=== PATIENT | female | born 1950 | race American Indian/Alaskan Native ===

== ENCOUNTER 2017-09-09 20:04 | Emergency (ER) | payer SELFPAY ==
[2017-09-09 20:37] VITALS: BP 156/70
[2017-09-09 21:05] LABS: Basophils % (Auto) 0.4 % (0.0-1.8); Eosinophils % (Auto) 0.4 % (0.0-4.3); Hematocrit 38.3 % (30.3-42.9); Hemoglobin 12.7 gm/dl (10.1-14.3); Lymphocytes # (Auto) 1.3 K/mm3 (1.2-5.4); Lymphocytes % (Auto) 15.9 % (13.4-35.0); Mean Corpuscular HGB Conc 33 % (30-34); Mean Corpuscular Hemoglobin 29 pg (28-32); Mean Corpuscular Volume 87 fl (79-97); Monocytes # (Auto) 0.7 K/mm3 (0.0-0.8); Monocytes % (Auto) 8.2 % (0.0-7.3); Platelet Count 281 K/mm3 (140-440); Red Blood Count 4.38 M/mm3 (3.65-5.03); Red Cell Distribution Width 15.8 % (13.2-15.2)
[2017-09-09 21:30] LABS: BUN/Creatinine Ratio 11; Blood Urea Nitrogen 10 mg/dL (7-17); Calcium 8.5 mg/dL (8.4-10.2); Hemolysis Index 5
--- NOTE | 2017-09-09 22:01 | XRay Report ---
FINAL REPORT PROCEDURE: Chest. TECHNIQUE: PA and lateral views. HISTORY: Shortness of breath. COMPARISON: No prior studies are available for comparison. FINDINGS: The heart and mediastinum appear normal. The lungs are clear and mildly hyperinflated. There are no pleural effusions. The soft tissues and regional skeleton are unremarkable. IMPRESSION: Mild COPD.
== END 2017-09-10 01:05 | disposition left against medical advice (07) ==
LOC: ED 20:04
DX: R07.9 Chest pain, unspecified (principal); Z53.21 Procedure and treatment not carried out due to patient leaving prior to being seen by health care provider
CPT/HCPCS: 36415; 71046; 80048; 84484; 85025; 93005; 93010

== ENCOUNTER 2019-08-11 18:39 | Emergency (ER) | payer MEDICARE ==
[2019-08-11 20:38] LABS: Basophils # (Auto) 0.1 K/mm3 (0.0-0.1); Basophils % (Auto) 1.4 % (0.0-1.8); Eosinophils # (Auto) 0.1 K/mm3 (0.0-0.4); Eosinophils % (Auto) 1.2 % (0.0-4.3); Hematocrit 29.9 % (30.3-42.9); Hemoglobin 9.9 gm/dl (10.1-14.3); Lymphocytes # (Auto) 1.4 K/mm3 (1.2-5.4); Lymphocytes % (Auto) 15.5 % (13.4-35.0); Mean Corpuscular HGB Conc 33 % (30-34); Mean Corpuscular Volume 79 fl (79-97); Monocytes # (Auto) 0.5 K/mm3 (0.0-0.8); Monocytes % (Auto) 6.2 % (0.0-7.3); Platelet Count 499 K/mm3 (140-440); Red Cell Distribution Width 17.9 % (13.2-15.2)
[2019-08-11 20:46] LABS: INR 1.05 (0.87-1.13)
[2019-08-11 20:47] LABS: Partial Thromboplastin Time 25.4 Sec. (24.2-36.6); Thrombin Time 15.6 Sec. (15.1-19.6)
[2019-08-11 20:52] LABS: BUN/Creatinine Ratio 16; Blood Urea Nitrogen 11 mg/dL (7-17); Calcium 9.3 mg/dL (8.4-10.2); Hemolysis Index 0
[2019-08-11 21:02] LABS: Creatine Kinase MB < 1.0 ng/mL (0.0-4.0)
[2019-08-11] MEDS ORDERED: diphenhydrAMINE 50 MG/ML VIAL IV ONE (21:09)
[2019-08-11] MEDS ORDERED: SODIUM CHLORIDE 0.9% 1000 ML 1,000 ML IV ONE (21:09)
[2019-08-11] MEDS ORDERED: METOCLOPRAMIDE 10 MG/2 ML INJ IV ONE (21:09)
--- NOTE | 2019-08-11 21:14 | Cat Scan Report ---
CT HEAD WITHOUT CONTRAST INDICATION / CLINICAL INFORMATION: Stroke symptoms. TECHNIQUE: All CT scans at this location are performed using CT dose reduction for ALARA by means of automated e xposure control. COMPARISON: None available. FINDINGS: HEMORRHAGE: No evidence of intracranial hemorrhage or extra-axial fluid collection. EXTRA-AXIAL SPACES: Cortical sulci, sylvian fissures and basilar cisterns have an unremarkable appear ance. VENTRICULAR SYSTEM: The ventricular system is of normal size and configuration. CEREBRAL PARENCHYMA: Mild periventricular white matter lucencies noted consistent with age-related mi crovascular ischemia. A punctate focus of decreased attenuation is seen in the vicinity of the anteri or limb of the internal capsule on the left where a remote small deep infarction is suspected.. There is no indication of recent infarction. MIDLINE SHIFT OR HERNIATION: There is no mass effect. CEREBELLUM / BRAINSTEM: Brainstem and cerebellum have an unremarkable appearance. INTRACRANIAL VESSELS: Extensively calcified atherosclerotic plaque seen along the course of the adalberto nous segments of both internal carotid arteries. Similar findings are seen at the distal left vertebr al artery. ORBITS: visualized portions of the orbits have an unremarkable appearance. SOFT TISSUES of HEAD: No significant abnormality. CALVARIUM: Evaluation of bone windows reveals no abnormalities. PARANASAL SINUSES / MASTOID AIR CELLS: Paranasal sinuses are free from inflammatory mucosal disease. Mastoid air cells are normally pneumatized. IMPRESSION: 1. No acute intracranial abnormality. 2. Evidence of intercranial atherosclerotic disease manifest by calcified atherosclerotic plaque as d escribed above. Code stroke: I called a report of this study to Dr. Pollard of the [facility] emergency departm ent at about 2006 hours (Central standard time). Signer Name: Carlos Franklin MD Signed: 08/11/2019 9:09 PM Workstation Name: [id number]
[2019-08-11] MEDS ORDERED: MORPHINE 2 MG/1 ML INJ IV ONE (21:48)
--- NOTE | 2019-08-11 22:18 | Emergency Department Report ---
ED Headache HPI - General Chief Complaint: Headache Stated Complaint: HEAD/R SIDE PAIN/TINGLING FINGERS Time Seen by Provider: 08/11/19 20:14 Source: patient Exam Limitations: no limitations - History of Present Illness Initial Comments: 69-year-old female with history of chronic back pain (under the care of pain management), TIAs in the past, presents to ED with headache since this morning. Patient states pain is located in the right occipital region. Patient states she took a muscle relaxer at home for the pain without relief. Patient denies any fever, URI symptoms, nausea or vomiting, neck pain, trauma. Patient reports associated pain and numbness to the right hand and leg, also the left hand. Patient states this feels different her previous TIAs in the past, states there was no associated pain with her TIAs. Patient states she is currently on Plavix. Timing/Duration: other (this morning) Quality: severe Recent Head Trauma: no recent headache/trauma Associated Symptoms: denies: fever/chills, nausea/vomiting, stiff neck, vision changes Allergies/Adverse Reactions: Allergies aspirin Allergy (Verified 09/09/17 20:39) Seizure diphenhydramine [From Benadryl] Allergy (Verified 08/11/19 21:44) Itching Penicillins Allergy (Verified 09/09/17 20:37) Seizure Home Medications: Ambulatory Orders Butalb/Acetamin/Caff 50-325-40 [Fioricet] 1 tab PO Q6HR PRN #10 tab 08/11/19 ED Review of Systems ROS: Stated complaint: HEAD/R SIDE PAIN/TINGLING FINGERS Other details as noted in HPI Comment: All other systems reviewed and negative Constitutional: denies: chills, fever Respiratory: denies: cough, shortness of breath Cardiovascular: denies: chest pain Gastrointestinal: denies: nausea, vomiting Musculoskeletal: other (denies neck pain) Neurological: headache, numbness ED Past Medical Hx - Past Medical History Hx Hypertension: Yes Hx Asthma: Yes Additional medical history: COPD, Anemia - Social History Smoking Status: Former Smoker Substance Use Type: None - Medications Home Medications: Home Medications Medication Instructions Recorded Confirmed Last Taken Type Butalb/Acetamin/Caff 50-325-40 1 tab PO Q6HR PRN #10 tab 08/11/19 Unknown Rx [Fioricet] ED Physical Exam - General Limitations: No Limitations General appearance: alert, in no apparent distress - Head Head exam: Present: atraumatic, normocephalic - Eye Eye exam: Present: normal appearance, PERRL, EOMI - ENT ENT exam: Present: mucous membranes moist - Neck Neck exam: Present: normal inspection, full ROM. Absent: tenderness, m eningismus - Respiratory Respiratory exam: Present: normal lung sounds bilaterally. Absent: respiratory distress - Cardiovascular Cardiovascular Exam: Present: normal rhythm, tachycardia - GI/Abdominal GI/Abdominal exam: Present: soft. Absent: distended, tenderness - Extremities Exam Extremities exam: Present: normal inspection - Neurological Exam Neurological exam: Present: alert, oriented X3, CN II-XII intact, motor sensory deficit (reports tingling to bilateral hands), other (NIH score of 0) - Psychiatric Psychiatric exam: Present: normal affect, normal mood - Skin Skin exam: Present: warm, dry, intact, normal color ED Course Vital Signs 08/11/19 08/11/19 08/11/19 19:39 21:00 22:00 Temperature 98.8 F Pulse Rate 119 H 124 H 119 H Respiratory 20 28 H 21 Rate Blood Pressure 131/78 144/77 132/71 O2 Sat by Pulse 97 96 96 Oximetry 08/11/19 08/11/19 08/11/19 22:30 23:00 23:30 Temperature Pulse Rate 121 H 118 H 114 H Respiratory 24 25 H 19 Rate Blood Pressure 144/77 131/72 131/72 O2 Sat by Pulse 96 96 94 Oximetry 08/12/19 00:00 Temperature Pulse Rate 118 H Respiratory 25 H Rate Blood Pressure 133/76 O2 Sat by Pulse 97 Oximetry - Reevaluation(s) Reevaluation #1: 08/11/19 22:56 Pt reports RUIZ currently resolved following IV fluids and morphine. Pt feeling much better. Pt reports hx of tachycardia. States whenever she goes to the doctor, her heart rate is usally "over 100." ED Medical Decision Making - Lab Data Result diagrams: 08/11/19 20:28 08/11/19 20:28 - EKG Data -: EKG Interpreted by Me EKG shows normal: sinus rhythm, axis, intervals, QRS complexes, ST-T waves Rate: tachycardia (rate 116) - EKG Data Interpretation: no acute changes - Radiology Data Radiology results: report reviewed, image reviewed - Medical Decision Making Stroke alert called. Pt seen by teleneurologist, who did not feel that pt was having an acute stroke. States exam nonfocal, also reported to neurologist that she was having bilateral hand pain and numbness. CT Head normal. Pt given morp tomi for pain, reports resolution of RUIZ, hand pain. Asked pt for urine sample to check UA, and pt stated that her urine may be positive for cocaine because she cooks it and therefore handles it, but denies actually using it. UDS is in fact positive for cocaine. Likely due to cocaine use, not handling. Patient reports resolution of symptoms at this time, feeling much better. Will discharge home. Pt is tachycardic, reports history of tachycardia, possibly due to the cocaine. States she has an upcoming appt w/ her customer service and sales consultant, Dr Luke, on Aug 20. Pt advised to refrain from using/ handling cocaine. Return precautions given. Critical care attestation.: If time is entered above; I have spent that time in minutes in the direct care of this critically ill patient, excluding procedure time. ED Disposition Clinical Impression: Acute headache, Cocaine abuse Disposition: DC-01 TO HOME OR SELFCARE Is pt being admited?: No Condition: Stable Instructions: Acute Headache (ED) Prescriptions: Butalb/Acetamin/Caff 50-325-40 [Fioricet] 1 tab PO Q6HR PRN #10 tab PRN Reason: Headache Referrals: PRIMARY CARE, [Referring] - 3-5 Days Time of Disposition: 23:44
[2019-08-11 23:08] LABS: Bilirubin,Urine NEG (Negative); Blood,Urine SM (Negative); Color,Urine Yellow (Yellow); Hyaline Casts,Urine 1 /LPF; Mucus,Urine FEW /HPF; Protein,Urine <15 mg/dL mg/dL (Negative); WBC,Urine < 1.0 /HPF (0.0-6.0)
[2019-08-11 23:15] LABS: Amphetamine Screen,Urine PRESUMPTIVE NEGATIVE; Benzodiazepines Screen,Urine PRESUMPTIVE NEGATIVE; Cannabinoid Screen,Urine PRESUMPTIVE NEGATIVE; Methadone Screen,Urine PRESUMPTIVE NEGATIVE; Opiate Screen,Urine PRESUMPTIVE NEGATIVE
[2019-08-11 23:26] LABS: Cocaine Screen,Urine PRESUMPTIVE POSITIVE
[2019-08-12 00:34] VITALS: BP 133/76
[2019-08-13] MEDS ORDERED: SODIUM CHLORIDE 0.9% 1000 ML 1,000 ML IV ONE (03:41)
== END 2019-08-12 00:15 | disposition home or self-care (01) ==
LOC: ED 18:39
DX: R51 Headache (principal); R20.0 Anesthesia of skin; F12.10 Cannabis abuse, uncomplicated; J45.909 Unspecified asthma, uncomplicated; I10 Essential (primary) hypertension; Z87.891 Personal history of nicotine dependence; Z86.2 Personal history of diseases of the blood and blood-forming organs and certain disorders involving the immune mechanism; Z88.6 Allergy status to analgesic agent; Z88.0 Allergy status to penicillin; Z88.8 Allergy status to other drugs, medicaments and biological substances; Z79.899 Other long term (current) drug therapy
CPT/HCPCS: 36415; 70450; 80048; 80307; 81001; 82550; 82553; 82962; 84484; 85025; 85610; 85670; 85730; 93005; 93010; 96374; 99285; J2270; J7030; J1200; J2765